=== PATIENT | male | born 1970 | race Caucasian/White ===

== ENCOUNTER → 2022-11-24 08:23 | Outpatient (CLI) | payer OTHER, SELFPAY ==
--- NOTE | ~2022-11-24 | XR_ITS ---
XR thoracic spine 3V 11/24/2022 08:58 Indication: Back pain Procedure: 2 views of the thoracic spine Comparison: No prior studies for comparison. Findings: There is mild dextroscoliosis. Vertebral body heights are maintained. No paraspinal soft ti ssue abnormality. Lung parenchyma is unremarkable. Pedicles intact. There is mild spondylosis of the mid and lower thoracic spine. Impression: 1: Mild thoracic spondylosis with dextroscoliosis. Reviewed, dictated and finalized at location L. Impression: 1: Mild thoracic spondylosis with dextroscoliosis.
--- NOTE | ~2022-11-24 | XR_ITS ---
[[id number] ] INDICATION: Right chest wall pain TECHNIQUE: Frontal projection of the upper right ribs, frontal projection of the lower right ribs, ob lique projection of all the right ribs, frontal inspiratory chest x-ray for interpretation. FINDINGS: There are no displaced rib fractures identified. There are no soft tissue abnormality see n. The lungs are clear. IMPRESSION: 1:No acute displaced rib fractures. Reviewed, dictated and finalized at location L.
== END ==
PROVIDERS: PCP Family Medicine; Visit Provider Nurse Practitioner Family
DX: R07.89 Other chest pain (principal); M54.14 Radiculopathy, thoracic region; M43.04 Spondylolysis, thoracic region; M41.84 Other forms of scoliosis, thoracic region
CPT/HCPCS: 71101; 72072

== ENCOUNTER → 2022-12-10 11:30 | Outpatient (CLI) | payer OTHER, SELFPAY ==
--- NOTE | ~2022-12-10 | MR_ITS ---
MRI of the thoracic spine Clinical History: Radiculopathy Technique: Axial T2-weighted and gradient images, and sagittal T1-weighted, T2-weighted, and STIR awais ges were acquired. Findings: There is no fracture or subluxation of the thoracic spine. Vertebral bodies maintain normal height and alignment. No suspicious bone marrow signal abnormality seen. Small intraosseous hemangio ma noted at T7. At T2-T3, there is left paracentral disc bulge which minimally flattens the ventral cord. No other si gnificant disc bulge or herniation seen in the remainder of the thoracic spine. No other areas of can al stenosis or cord compression. No epidural mass or collection seen otherwise. Paravertebral soft tissues are unremarkable. Impression: Left paracentral disc bulge at T2-T3 which minimally flattens the ventral cord at this level. Reviewed, dictated and finalized at [facility]. Impression: Left paracentral disc bulge at T2-T3 which minimally flattens the ventral cord at this level.
== END ==
PROVIDERS: PCP Nurse Practitioner Family; Visit Provider Nurse Practitioner Family
DX: M54.14 Radiculopathy, thoracic region (principal)
CPT/HCPCS: 72146

== ENCOUNTER → 2023-02-22 15:16 | Outpatient (CLI) | payer OTHER, SELFPAY ==
--- NOTE | ~2023-02-22 | CT_ITS ---
EXAMINATION: CT diagnostic chest wo con DATE: 02/22/2023 15:47 INDICATION: Left chest wall pain TECHNIQUE: Computed tomography (CT) of the chest was performed without intravenous contrast. The dose -length product (DLP) was 719.88 mGy-cm. Automated exposure control and iterative reconstruction tech nique were employed. COMPARISON: None FINDINGS: There appear to be nondisplaced lateral fractures of the left sixth and seventh ribs. There is mild underlying atelectasis of the lingula. No pleural effusion or pneumothorax. No pathologicall y enlarged thoracic lymph nodes are identified. The heart size is normal. There is calcified coronary artery atherosclerosis. There is mild thoracic spondylosis. IMPRESSION: 1. Probable nondisplaced lateral fractures of the left sixth and seventh ribs. Correlate for history of trauma. Reviewed, dictated and finalized at location B.
--- NOTE | ~2023-02-22 | CT_ITS ---
EXAMINATION: CT abdomen pelvis w con DATE: 02/22/2023 15:47 INDICATION: Left upper quadrant abdominal mass and pain TECHNIQUE: Computed tomography (CT) of the abdomen and pelvis was performed with 100 mL Omnipaque-350 intravenous contrast. Automated exposure control and iterative reconstruction technique were employe d. The dose-length product was 1322.51 mGy-cm. COMPARISON: None FINDINGS: Mild discoid atelectasis at the lingula. Heart size is normal. No pericardial or pleural effusion. Di ffuse hepatic steatosis. Scattered calcified granulomata throughout the liver and spleen. Gallbladder , pancreas, bilateral adrenal glands and kidneys are normal. Bowels including the appendix are normal . Bladder is normal. No free intraperitoneal gas or fluid. No pathologically enlarged abdominal or pe lvic lymphadenopathy. Mild scattered degenerative skeletal changes in the spine and pelvis. IMPRESSION: 1. No acute intra-abdominal/pelvic process. 2. Diffuse hepatic steatosis. Reviewed, dictated and finalized at location A.
[2023-02-22 15:36] LABS: Estimated Glomerular Filt Rate > 60
== END ==
PROVIDERS: PCP Nurse Practitioner Family; Visit Provider Nurse Practitioner Family
DX: R19.02 Left upper quadrant abdominal swelling, mass and lump (principal); R07.89 Other chest pain; K76.0 Fatty (change of) liver, not elsewhere classified
CPT/HCPCS: 71250; 74177; Q9967

== ENCOUNTER → 2023-03-26 09:34 | Outpatient (CLI) | payer OTHER, SELFPAY ==
--- NOTE | ~2023-03-26 | MR_ITS ---
EXAMINATION: MR thoracic spine wo/w con DATE: 03/26/2023 10:26 INDICATION: Thoracic spine pain. Hemangioma of spine. TECHNIQUE: Magnetic resonance imaging (MRI) of the thoracic spine was performed without and with 20 m L Multihance intravenous contrast. Sagittal localizer T1-weighted FSE of the cervicothoracic spine wa s obtained. Sequences included sagittal T2-weighted FSE, sagittal T2-weighted FS FSE, sagittal T1-jony ghted FSE and axial T1-weighted SE. Postcontrast sequences included axial T2-weighted FSE, sagittal T 1-weighted FS FSE, and axial T1-weighted FS SE. COMPARISON: 11/24/2022 FINDINGS: Again seen is mild thoracic dextrocurvature. Sagittal alignment is normal.Vertebral body heights are normal.T1 hyperintense hemangioma at T7.Marrow signal is otherwise normal throughout. Multilevel mild disc height loss from T1-T2 through T9-T10. Mild disc bulges resulting in mild central canal stenosi s at C6-C7 and C7-T1. Annular fissure and small left paracentral disc extrusion at T2-T3 with disc ma terial extending 3 mm cephalad to the level of the inferior endplate of T2 through this results in mi ld central canal stenosis with mild flattening of the left ventral surface of the cord. The remaining more caudal discs do not extend beyond the endplate margins.There is normal spinal cord signal. The conus terminates below the inferior margin of the [id number] at L1. There is no neural foraminal s tenosis. No abnormally enhancing lesions identified. IMPRESSION: 1. Unchanged mild thoracic dextrocurvature with mild spondylosis with no abnormally enhancing lesions identified. Reviewed, dictated and finalized at location B. IMPRESSION: 1. Unchanged mild thoracic dextrocurvature with mild spondylosis with no abnorm ally enhancing lesions identified.
== END ==
PROVIDERS: PCP Nurse Practitioner Family; Visit Provider Nurse Practitioner Family
DX: M43.8X4 Other specified deforming dorsopathies, thoracic region (principal); M47.814 Spondylosis without myelopathy or radiculopathy, thoracic region; D18.09 Hemangioma of other sites; R07.89 Other chest pain
CPT/HCPCS: 72157; A9577

== ENCOUNTER → 2023-04-06 08:03 | Outpatient (CLI) | payer OTHER, SELFPAY ==
--- NOTE | ~2023-04-06 | US_ITS ---
EXAMINATION: US abdomen complete DATE: 04/06/2023 08:32 INDICATION: Left upper quadrant pain TECHNIQUE: Multiple grayscale and Doppler ultrasound images of the abdomen were obtained. COMPARISON: CT, 02/22/2023 FINDINGS: The head and body of the pancreas are normal. The pancreatic tail is obscured by bowel gas. The liver demonstrates increased echogenicity, heterogenous echotexture, and decreased through trans mission. No surface nodularity. Normal hepatopetal flow in the main portal vein. The gallbladder is n ormal with no abnormal wall thickening, pericholecystic fluid or stones. The normal common bile duct measures 4 mm. There was no sonographic Wang sign. The visualized portions of the aorta and inferio r vena cava are normal. The spleen contains multiple calcified granulomas and measures 14.3 cm. The right kidney measures 12. 7 x 5.2 x 6.1 cm. The left kidney measures 12.8 x 5.6 x 7.0 cm. The kidneys demonstrate normal parenc hymal echogenicity. There is no hydronephrosis. IMPRESSION: 1. No sonographic correlate for the patient's symptoms. Reviewed, dictated and finalized at location A.
== END ==
PROVIDERS: PCP Internal Medicine Medical Oncology; Visit Provider Nurse Practitioner Family
DX: D69.3 Immune thrombocytopenic purpura (principal); R19.02 Left upper quadrant abdominal swelling, mass and lump; R07.89 Other chest pain
CPT/HCPCS: 76700

== ENCOUNTER → 2023-04-14 13:00 | Outpatient (CLI) | payer OTHER, SELFPAY ==
--- NOTE | ~2023-04-14 | MR_ITS ---
MRI of the cervical spine Clinical History: Spinal stenosis Technique: Axial T2-weighted and gradient images, and sagittal T1-weighted, T2-weighted, and STIR awais ges were acquired. Findings: There is no fracture or subluxation of the cervical spine. Vertebral bodies maintain normal height and alignment. No suspicious bone marrow signal reality seen. At C2-C3, there is no significant disc bulge or herniation. No spinal canal stenosis, cord compressio n, or neural foraminal narrowing. At C3-C4, there is minimal disc osteophyte complex. No spinal canal stenosis, cord compression, or ne ural foraminal narrowing. At C4-C5, there is minimal disc osteophyte complex. No spinal canal stenosis, cord compression, or ne ural foraminal narrowing. At C5-C6, there is small disc osteophyte complex with mild ventral cord compression/flattening. There is probable minimal bilateral neural foraminal narrowing. At C6-C7, there is minimal disc osteophyte complex. No spinal canal stenosis, cord compression, or ne ural foraminal narrowing. No abnormal signal seen in the spinal cord. Paravertebral soft tissues are unremarkable. Impression: Mild ventral cord flattening/compression at C5-C6, related to disc osteophyte complex. Probable minim al bilateral neural foraminal narrowing at this level. Reviewed, dictated and finalized at [facility]. Impression: Mild ventral cord flattening/compression at C5-C6, related to disc osteophyte c omplex. Probable minimal bilateral neural foraminal narrowing at this level.
--- NOTE | ~2023-04-14 | XR_ITS ---
EXAM: XR ribs LT 2V DATE: 04/14/2023 13:44 HISTORY: no injury left lower anterior to lateral rib pain . COMPARISON: None available. FINDINGS: Visualized lung parenchyma is clear. Incidental note of mild left shoulder osteoarthritis. No fracture or dislocation. IMPRESSION: No acute osseous finding in the left ribs. Reviewed, dictated and finalized at location K.
== END ==
PROVIDERS: PCP Nurse Practitioner Family; Visit Provider Nurse Practitioner Family
DX: M48.04 Spinal stenosis, thoracic region (principal); D69.3 Immune thrombocytopenic purpura; D18.09 Hemangioma of other sites; R20.2 Paresthesia of skin; M62.830 Muscle spasm of back; R07.89 Other chest pain; K75.3 Granulomatous hepatitis, not elsewhere classified; M54.6 Pain in thoracic spine
CPT/HCPCS: 71100; 72141

== ENCOUNTER 2023-04-14 14:15 | Outpatient (CLI) | payer OTHER, SELFPAY ==
--- NOTE | ~2023-04-14 | XR_ITS ---
EXAMINATION: SCOLIOSIS DATE: 04/14/2023 14:47 INDICATION: Thoracic spinal stenosis and back pain TECHNIQUE: Standing AP and lateral views of the thoracolumbar spine FINDINGS: There are 12 rib bearing thoracic vertebral bodies and 5 non-rib bearing lumbar type verteb ral bodies. There is no listhesis, compression deformity or vertebral body anomaly. There are 9 degr ees of lower thoracic levocurvature. There is moderate thoracic spondylosis. No fracture is identifie d. IMPRESSION: 1. 9 degrees of lower thoracic levocurvature. 2. Moderate thoracic spondylosis without acute osseous abnormality. Reviewed, dictated and finalized at location L.
== END 2023-04-14 14:16 | disposition home or self-care (01) ==
PROVIDERS: PCP Nurse Practitioner Family; Visit Provider Nurse Practitioner Family
DX: M48.04 Spinal stenosis, thoracic region (principal); M47.24 Other spondylosis with radiculopathy, thoracic region; D69.3 Immune thrombocytopenic purpura; D18.09 Hemangioma of other sites; R20.2 Paresthesia of skin; M62.830 Muscle spasm of back; R07.89 Other chest pain; K75.3 Granulomatous hepatitis, not elsewhere classified
CPT/HCPCS: 72082